=== PATIENT | female | born 1940 | race Caucasian/White ===

== ENCOUNTER 2020-07-01 01:02 | Inpatient (IN) | payer OTHER, SELFPAY ==
[2020-07-01] VITALS (73 sets, daily range): BP systolic 73–109; BP diastolic 46–77; PULSE 57–104; RESP 17–31; TEMP 35.9–36.2; O2SAT 2–99
--- NOTE | 2020-07-01 | DI.US_ITS ---
APPROVED REPORT EXAM: Comprehensive 2D, Doppler, and color-flow Echocardiogram Patient Location: In-Patient Ambulatory Care Coordinator: Megan Serna RDCS (AE) Indications: COPD,CHF,Hypotension Other Information Study Quality: Adequate Conclusion Left Ventricle : The left ventricle is normal size. The left ventricular systolic function is normal. The left ventricular ejection fraction is within the normal range. There is normal left ventricular wall thickness. There is normal LV segmental wall motion. The left ventricular diastolic function is normal. LVEF is 59%. Right Ventricle : Right ventricle is borderline dilated. The right ventricular systolic function is n ormal. The RVSP is 40.5 mmHg. Atria : Left atrium is severely dilated. Right atrium is moderately dilated. Mitral Valve : Moderate mitral annular calcification. Moderate mitral regurgitation. Mitral regurgita tion jet is eccentrically directed. No evidence of mitral valve stenosis. Great Vessels : The aortic root is normal in size. The ascending aorta is severely dilated (4.3cm). A ortic arch is normal in caliber. IVC is normal in size and collapses >50% with inspiration. Please see remainder of study for further details. Wall motion Left Ventricle The left ventricle is normal size. The left ventricular systolic function is normal. The left ventric ular ejection fraction is within the normal range. There is normal left ventricular wall thickness. T here is normal LV segmental wall motion. The left ventricular diastolic function is normal. There is no ventricular septal defect visualized. LVEF is 59%. Right Ventricle Right ventricle is borderline dilated. The right ventricular systolic function is normal. The RVSP is 40.5 mmHg. Atria Left atrium is severely dilated. Right atrium is moderately dilated. The interatrial septum is intact with no evidence for an atrial septal defect. Aortic Valve The Aortic valve is sclerotic. Aortic valve is trileaflet. No hemodynamically significant valvular ao rtic stenosis. Trace to mild aortic regurgitation. Mitral Valve Moderate mitral annular calcification. No evidence of mitral valve stenosis. Moderate mitral regurgit ation. Mitral regurgitation jet is eccentrically directed. Tricuspid Valve The tricuspid valve is normal in structure. There is no tricuspid valve stenosis. Mild tricuspid regu rgitation. Pulmonic Valve The pulmonary valve is normal in structure. There is no pulmonic valvular stenosis. Trace pulmonic re gurgitation. Great Vessels The aortic root is normal in size. The ascending aorta is severely dilated (4.3cm). Aortic arch is no rmal in caliber. IVC is normal in size and collapses >50% with inspiration. Pericardium There is no pericardial effusion. 2D Dimensions IVSD d PLAX 1.02 cm F: 0.6-1.0 LV Vol A2C d MOD 84.0 mL LVPW d PLAX 1.02 cm F: 0.6 - 1.0 LV Vol A4C d MOD 68.8 mL LVID d PLAX 4.63 cm F: 3.8 - 5.2 LA vol/ BSA A2C s A-L 56.7 mL/m2 LVDs 3.05 cm F: 2.2 - 3.5 LA vol/ BSA A4C s A-L 41.1 mL/m2 Ao Root d 3.26 cm F: 2.7 - 3.3 LA Vol/ BSA Biplane s A-L 49.7 mL/m2 RA Area A4C 23.42 cm2 LA Area A4C s MOD 23.87 cm2 RA Vol/ BSA A4C s A-L 41.3 mL/m2 LA Area A2C s MOD 28.88 cm2 Ao Asc Diam d 4.33 cm F: 2.3 - 3.1 LV EF A4C MOD 58.1 % LV EF Teichholz 62.8 % LV EF A2C MOD 59.8 % LVEF (Devlin's) 59.22 % F: 54 - 74 LV EF Biplane MOD 59.2 % LV Volume 59.53 mL F: 46 - 106 SV 45.69 mL LV Volume Index 32.35 mL/m2 F: 29 - 61 SV Index 24.83 mL/m2 LV Vol Biplane MOD 77.1 mL FS 33.85 % M-Mode TAPSE 1.85 cm (M/F) >1.7 LV Diastology MV E' medial 0.087 (>0.07 m/s) MV E Vmax 1.14 (0.4-1.3 m/s) LV E/e MED 13.05 (<14) MV E' lateral 0.136 (>0.1 m/s) LV E/e LAT 8.35 (<14) MV E/E' medial 13.09 MV E/E' lateral 8.37 Aortic Valve LVOT Area 3.59 cm2 AoV Area Vmax 2.40 cm2 LVOT Vmax 1.43 m/s AoV Area/ BSA (Vmax) 1.31 cm2/m2 LVOT Mean Andriy. 1.00 m/s BRANDAN Mean Andriy. 2.60 cm2 LVOT Peak Grad 8.2 mmHg BRANDAN Mean Andriy. Index 1.42 cm2/m2 LVOT Mean Grad 4.6 mmHg AR DT 2277 msec LVOT VTI 0.277 m AR PHT 660 msec LVOT Diam s 2.10 cm AoV Vmax 2.14 m/s Velocity Ratio 0.66 AoV Mean Andriy. 1.38 m/s AoV Peak Grad 18.3 mmHg LVOT SV 99.46 mL AoV Mean Grad 8.9 mmHg AoV VTI 0.344 m AoV Area VTI 2.89 cm2 AoV Area/ BSA (VTI) 1.57 cm/m2 Mitral Valve MV DT 217 (160-240 msec) MR Vmax 4.86 m/s MV PHT 63 msec MR VTI 1.385 m MV Area PHT 3.50 cm2 MR Peak Grad 94.7 mmHg MV VTI 0.231 m MR Mean Grad 76.5 mmHg MV VTI Annulus 0.233 m MR PISA Radius 0.61 cm MV Area VTI 4.34 (4.0-6.0 cm2) MR EROA 0.17 cm2 MR Aliasing Velocity 0.35 m/s MR PISA 2.34 cm2 Pulmonary Valve PV Vmax 1.09 (0.5-1.5 m/s) RVOT Peak Gr. 2.32 mmHg PV Peak Grad 4.7 mmHg RVOT Mean Gr. 1.20 mmHg PV Mean Grad 2.1 mmHg RVOT VTI 0.146 m PV VTI 0.174 m RVOT Vmax 0.76 m/s Tricuspid Valve TR Peak Grad 37.4 mmHg TR Vmax 3.06 m/s RA Pressure 3.00 mmHg RVSP (TR) 40.5 mmHg
--- NOTE | 2020-07-01 01:09 | HPE_ITS ---
Assessment and Plan Assessment and plan (1) Atrial fibrillation: Status: Chronic Assessment and plan: Presented atrial fibrillation with rapid ventricular response. Appears to be been triggered by dehydration. She may have also had her blood pressure medications changed, which makes me wonder if she was previously on a rate control agent. She did respond to relatively low-dose diltiazem at [facility]. But I am going to transition her to metoprolol, as patients with COPD and cardiac issues often do better on metoprolol. Goal rate below 110. I cannot find record of her being on anticoagulation. Her [id number] VASc score is certainly high enough to warrant this based on her age and history of hypertension. Should review her clinic record further and discuss risk and benefits before starting. We will also get TSH given history. (2) Acute on chronic renal failure: Status: Acute Assessment and plan: Again, it appears secondary to dehydration so it is likely prerenal. The patient noted the chlorthalidone, which may have been due to worsened renal failure. I have been told this for now as I gently continue hydration. (3) COPD (chronic obstructive pulmonary disease): Status: Chronic Assessment and plan: For COPD is not appear to be active. It looks like her only controller inhaler is Flovent, which is not first-line as a monotherapy for COPD. I am just giving her her albuterol as needed for now, could consider long-acting muscarinic. (4) GERD (gastroesophageal reflux disease): Status: Chronic Assessment and plan: Patient has history of significant dyspepsia, and was on a boat H2 shweta and prior dose PPI. We will continue PPI. Do not generally recommend cimetidine due to drug drug interactions so we will hold this. (5) DVT prophylaxis: Status: Acute Assessment and plan: Lovenox at prophylactic dose until given full anticoagulation (6) Discharge planning issues: Status: Acute Assessment and plan: Patient is currently stable. Being monitored in the ICU due to rapid ventricular response, but at this point does not need a drip. I confirmed with her today that she wishes to be full code. History of Present Illness History of Present Illness Chief Complaint: Malaise Narrative: 79-year-old female with history of stage III CKD, COPD, and atrial fibrillation who is presenting after more than 2 weeks of progressive general malaise. Patient describes feeling lightheaded, thirsty, off-and-on headache, and blurry vision along with generally feeling under the weather. She is also had loose watery stools during this time that are yellow in color except for looking darker after she took Pepto-Bismol. Over the past several days she is also noted nausea and queasiness in her belly, and states she has had very little to eat or drink due to this the past 2 days. She is not sure what caused this. She does state her primary care physician changed her blood pressure med about a month ago. She states she also was on an extra water pill due to leg swelling earlier in the month, but stopped it. She also had her second Covid vaccine in early May, but she does not think that was the cause of all her symptoms. She is feeling little better after IV fluids and diltiazem as [facility], but is still very thirsty. She received 2 dose of 5 mg IV diltiazem. She was not on a drip. She was transferred to [facility] due to lack of beds at [facility]. Review of Systems Constitutional Constitutional: Denies anorexia, Denies chills, Denies fever(s), Reports headache(s), Reports lethargy, Reports malaise and Denies weight gain Eyes Eyes: Denies change in vision and Denies irritation ENT Ears, Nose, Mouth, and Throat: Reports dizziness, Reports headache(s), Denies nasal congestion, Denies nasal discharge and Denies sore throat Cardiovascular Cardiovascular: Reports palpitations, Denies dyspnea and Denies orthopnea Respiratory Respiratory: Denies cough, Denies excessive phlegm production, Denies dyspnea and Denies wheezing Gastrointestinal Gastrointestinal: Denies abdominal pain, Denies melena, Denies hematochezia, Reports dyspepsia, Denies heartburn, Reports nausea and Denies vomiting Genitourinary Genitourinary: Denies hematuria, Denies dysuria, Denies urinary incontinence and Denies vaginal discharge Musculoskeletal Musculoskeletal: Denies arthralgias and Denies joint swelling Integumentary/Breasts Skin/Breast: Denies rash and Denies skin ulcer Neurologic Neurologic: Denies confusion, Reports dizziness, Reports headache(s), Denies localized weakness and Denies sensory deficit Psychiatric Psychiatric: Denies confusion, Denies mood swings and Denies panic attacks Endocrine Endocrine: Reports palpitations Hematologic/Lymphatic Hematologic/Lymphatic: Denies easy bleeding Allergic/Immunologic Allergic/Immunologic: Denies wheezing PFSH Medical History Atrial fibrillation COPD (chronic obstructive pulmonary disease) GERD (gastroesophageal reflux disease) Hypertension Hypothyroid Family History (Updated 07/01/20 @ 01:14 by Devin Daniel) Sister Breast cancer Mother Breast cancer Brother Colon cancer Social History (Updated 07/01/20 @ 01:16 by Devin Daniel) Smoking/Tobacco Use Status: Former Tobacco Use Smoking risk assessment performed?: Yes Alcohol Intake: current Alcohol Intake frequency: holidays/special occasions only Drug use: Never Additional Social history: 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 Grew up in [place], now [place] Medications and Allergies Allergies Allergy/AdvReac Type Severity Reaction Status Date / Time levothyroxine sodium AdvReac Intermediate dizzy Verified 07/01/20 01:32 [From Synthroid] Exam Narrative Exam Narrative: GEN: Alert and oriented, pleasent and cooperative, gives linear history. No acute distress at rest. HEENT: Head atraumatic. Conjunctiva clear, no icterus. PEERL, EOMI. no rhinorrhea. MMM, OP benign. Neck is supple with no masses or lymphadenopathy, trachea midline LUNGS: CTAB with normal effort CV: Irregularly irregular, pulse in the 90s at rest. With no murmurs, gallops, or rubs. ABD: +BS, soft, NT/ND EXT: no cyanosis, clubbing, or edema MSK: No joint redness or swelling NEURO: CN 2-12 grossly intact. Normal movement of 4 extremities. Normal speech and coordination SKIN: No rashs or open wounds. PSYCH: normal mood and affect Results Imaging Chest x-ray: report reviewed (No acute disease) Additional studies: Atrial fibrillation with rate in the 140s EKG: report reviewed Labs Result diagrams: 07/01/20 05:35 07/01/20 05:35 Labs: See country records, which I reviewed. Significant for BUN and creatinine of 63 and 4.2, up from 20 and 1.3 in July 2019. BNP 1700. Echocardiogram from 2014 reviewed which showed normal ejection fraction.
[2020-07-01] MEDS: Normal Saline 1,000 ML 125 ML IV ×2 (02:06→09:18)
[2020-07-01] MEDS: Metoprolol 25 MG TAB PO (02:06)
[2020-07-01] MEDS: Enoxaparin 40 MG/0.4 ML SYR SC (02:26)
[2020-07-01] MEDS: Normal Saline 500 ML IV ×2 (05:00→08:05)
[2020-07-01 07:33] LABS: BUN 70 mg/dL (7-18); Chloride 111 mmol/L (98-107); Estimated GFR 11.49 (mL/min/1.73m2); Glucose 88 mg/dL (74-106); Potassium 4.5 mmol/L (3.5-5.1); Sodium 141 mmol/L (136-145); TSH (W/Ref FT4) 4.35 uIU/mL (0.36-3.74)
[2020-07-01 07:38] LABS: CREATININE 3.8 mg/dL (0.55-1.02); Magnesium 0.5 mg/dL (1.8-2.4)
[2020-07-01] MEDS: MAGNESIUM SULFATE 4 GM/100 ML BAG IVPB (07:55)
[2020-07-01] MEDS: Esomeprazole 40 MG CAPCR PO (07:56)
[2020-07-01] MEDS: Normal Saline Flush 10 ML SYR (07:59)
[2020-07-01 08:19] LABS: NT-proBNP 1453 pg/mL (<300); Troponin I < 0.05 ng/mL (<0.06)
--- NOTE | 2020-07-01 11:14 | PHA.REVIEW ---
Pharmacy Admission Review - Admission Clinical Review (Last Reviewed 07/01/20 @ 01:13 by Devin Daniel) Discharge planning issues (Acute) DVT prophylaxis (Acute) Acute on chronic renal failure (Acute) levothyroxine sodium [From Synthroid] Adverse Reaction (Intermediate, Verified 07/01/20 01:32) dizzy Height 5 ft 2.99 in Weight 81 kg - Renal Dosing Renal Dosing: BUN 70 mg/dL (7-18) H 07/01/20 06:20 Creatinine 3.8 mg/dL (0.55-1.02) H* 07/01/20 06:20 Medications needing adjustments: Intervened (Crcl ~12.3 mL/min using adjusted body weight. Talked to provider about renally adjusting enoxaparin dosing. Esomeprazole use not recommended with severe impairment (has not beend studied).) - Anticoagulation Anticoagulation: Creatinine 3.8 mg/dL (0.55-1.02) H* 07/01/20 06:20 DVT Prohphylaxis: Reviewed Medications: Enoxaparin Therapeutic Anticoagulation: N/A - Opiate Usage Evaluate Pain Scale/Pains Meds: N/A - Relevant Labs Sodium 141 mmol/L (136-145) 07/01/20 06:20 Potassium 4.5 mmol/L (3.5-5.1) 07/01/20 06:20 Chloride 111 mmol/L (98-107) H 07/01/20 06:20 Magnesium 0.5 mg/dL (1.8-2.4) L* 07/01/20 06:20 Electrolytes, C-Reactive P, ESR: Reviewed (IV mag replacement ordered.) - DM Control DM Control: Glucose 88 mg/dL (74-106) 07/01/20 06:20 Insulin Dosing: N/A - Heart Failure/NH Heart Failure/NH: Troponin I < 0.05 ng/mL (<0.06) 07/01/20 06:20 NT-Pro-B Natriuret Pep 1453 pg/mL (<300) H 07/01/20 06:20 EF%, KALPESH's, B-Blockers, Diuretics: Reviewed - BP Control BP Control: Blood Pressure [Right Arm] 79/62 Blood Pressure [Right Arm] 101/53 Blood Pressure 79/53 Blood Pressure 82/61 Blood Pressure 79/48 Blood Pressure 79/49 Blood Pressure 79/51 Blood Pressure 86/62 Blood Pressure 79/57 If elevated: Reviewed (hypotensive- provider aware/monitoring.) - Qtc Review If Elevated: N/A - IV to PO Switch IV Medications: Reviewed - Home Meds Home Med List reviewed: Reviewed Relevent Home Meds Not ordered & why?: atorvastatin, meclizine, chlorthalidone, calcium carbonate, cholecalciferol, lisinopril - Current meds Current Medication Order Review: Reviewed - Comments Comments/Follow Ups: Watch BP, HR, SCr, Mag and for med changes.
[2020-07-01 11:22] LABS: Troponin I < 0.05 ng/mL (<0.06)
--- NOTE | 2020-07-01 11:37 | PGE_ITS ---
Date of Service Date of service: 07/01/20 Time of Service: 11:37 Assessment and Plan Assessment and plan (1) Atrial fibrillation: Status: Chronic Assessment and plan: Patient presented with atrial fibrillation with rapid ventricular response which responded readily to a couple of boluses of diltiazem. Patient remains hypotensive and therefore she is not going to be able to tolerate oral Lopressor. I have written for as needed Lopressor with parameters for giving or holding the medication. At this time I think her tachycardia would do well with adequate volume replacement. If she needs further rate control I would favor diltiazem over lopressor given her COPD and her BP readings. (2) Acute on chronic renal failure: Status: Acute Assessment and plan: I agree that this is pre-renal azotemia d/t diarrhea and continued use of chlorthalidone. I will have nursing obtain stool studies to r/o gastroenteritis, we will monitor her BMP and urine output. as she is voiding easily I have not had them put in a ribeiro yet. If she has low urine outputs or can not void then I will have nursing place a ribeiro (3) COPD (chronic obstructive pulmonary disease): Status: Chronic Assessment and plan: For COPD is not appear to be active. It looks like her only controller inhaler is Flovent, which is not first-line as a monotherapy for COPD. I am just giving her her albuterol as needed for now, could consider long-acting muscarinic. I agree w/ Dr. Daniel's assessment as above. (4) GERD (gastroesophageal reflux disease): Status: Chronic Assessment and plan: Patient has history of significant dyspepsia, and was on a boat H2 shweta and prior dose PPI. We will continue PPI. Do not generally recommend cimetidine due to drug drug interactions so we will hold this. I agree w/ above assessment. She was on a PPI chronically which probably contributed to her severe hypomagenesmia. I do not know how severe her GERD is but suspect that if she has been taking both an H2 shweta and PPI her GERD must be severe. We will keep her on Nexium which she was taking at home. (5) DVT prophylaxis: Status: Acute Assessment and plan: Lovenox at prophylactic dose until given full anticoagulation. (per my discussion w/ pharmacist, enoxaparin dose has been reduced for her TOBY/CKD) (6) Discharge planning issues: Status: Acute Assessment and plan: Patient is currently stable. Being monitored in the ICU due to rapid ventricular response, but at this point does not need a drip. I confirmed with her today that she wishes to be full code. Subjective Subjective Interval history since last seen: 79-year-old female with a past medical history of COPD, hypertension, stage III chronic kidney disease, GERD, mild aortic stenosis was transferred from [facility] to [facility] after she originally presented to [facility] emergency department with complaints of 2 weeks of nausea, diarrhea, decreased oral intake and dizziness. No associated chest pain but she has had exertional dyspnea over that same period of time. Symptoms got worse yesterday when she presented to the emergency department where she was found to be in rapid atrial fibrillation with a heart rate of 145 and a systolic blood pressure 100 and she was found to be in acute renal failure with a BUN of 63 and a creatinine of 4.20. LFTs and electrolytes are within normal limits. Hemoglobin is 14.2 g white count was minimally elevated 11,800. Her proBNP was elevated 1750 but her troponin high level was less than 0.06 which is normal. EKG was consistent with rapid atrial fibrillation rate 145 bpm with rate dependent ischemic ST depression diffusely. Patient was given a couple of fluid boluses and given 5 mg of diltiazem IV which was then repeated and IV fluids were started at 100 cc/h. Note that the ER indicated questionable history of CHF as the patient had been receiving diuretics including chlorthalidone for leg edema. And the patient had an elevated proBNP. However we have since received her last echocardiogram from [facility] which was performed July 21, 2014 and at that time she had normal left ventricular systolic function with a EF of 65% normal RV systolic function with mild biatrial enlargement and mild aortic stenosis. Mild mitral gravitation. Patient was accepted in transfer from [facility] at [facility] by Dr. Devin Daniel management gave her another 500 mL each because of low blood pressures running in the 70s to 80s systolic. Since I have assumed her care this morning I have given her 2 more boluses of 500 mL of saline each. Her magnesium level was found to be low at 0.5 and she has received a bolus of magnesium sulfate 4 g over 4 hours. TFTs showed mildly elevated TSH of 4.35 with a normal free T4. Repeat troponins this morning have remained negative. I did a [id number] ultrasound of her heart which was incomplete as the debeader came up to do a formal echocardiogram. Grossly her LV function appeared to be normal on the parasternal short axis view however I did not complete the exam since a formal echocardiogram is being done now. Her atrial fibrillation rate has been reasonably controlled in the 90s. Dr. Daniel start her on Lopressor 12.5 mg p.o. every 6 hours but she has not been able to take any of this because of her low blood pressure readings. Patient denies any CP or dyspnea at present and her SPO2 is 97% on RA however her SBP remains low in the high 70's to low 80's. Her lungs are clear. I suspect that she has severe dehydration d/t diuretic use along w/ her decr. oral intake and diarrhea. She will continue to receive aggressive IV fluids while we complete her cardiac workup w/ formal echo. I think that her BNP is probably chronically elevated d/t her COPD. Exam Narrative Exam Narrative: Elderly female lying in bed in no acute distress in spite of her low blood pressure. She is asymptomatic but we have not tried sitting her up or getting her out of bed. Lungs are clear to auscultation Heart is irregularly irregular Abdomen soft and nontender. Objective Last Vital Signs Temp 36.2 C L 07/01/20 07:45 Pulse 70 07/01/20 11:30 Resp 22 07/01/20 11:30 BP 84/49 L 07/01/20 11:30 Pulse Ox 97 07/01/20 11:30 Laboratory Results - last 24 hr 07/01/20 07/01/20 06:20 10:30 Sodium 141 Potassium 4.5 Chloride 111 H Carbon Dioxide 16.0 L Anion Gap 14.0 H BUN 70 H Creatinine 3.8 H* Estimated GFR/1.73 m2 11.49 Glucose 88 Calcium 7.0 L Magnesium 0.5 L* Troponin I < 0.05 < 0.05 NT-Pro-B Natriuret Pep 1453 H TSH 4.35 H Free T4 1.10
[2020-07-01] MEDS: Normal Saline 1,000 ML 250 ML IV (12:26)
--- NOTE | 2020-07-01 12:34 | PDOC.CMIN ---
- If Service Date Differs Date of service: 07/01/20 Time of Service: 12:34 Care Management Initial Assess REASON FOR HOSPITALIZATION:: A-fib, acute renal insufficiency PAST MEDICAL HISTORY/PAST SURGICAL HISTORY:: Atrial fibrillation. COPD (chronic obstructive pulmonary disease). GERD (gastroesophageal reflux disease). Hypertension. Hypothyroid PREVIOUS FUNCTIONAL STATUS/SOCIAL/FAMILY SUPPORTS:: Felipa resides alone in an apartment building that her son owns in [place]. She is and has one son, Durga who resides next door as well as a daughter, Ailyn who resides locally, both are supportive. She is independent at baseline in the community. CURRENT FUNCTIONAL STATUS:: Felipa remains in the ICU, per documentation she is being monitored closely for low BPs, A-fib and renal failure. CM continues to follow. Has patient been provided with info about the portal/API?: Yes Did the patient sign up for the portal?: No CODE STATUS:: Full Code INSURANCE COVERAGE / FINANCIAL ISSUES:: [facility] MCR replacement. CURRENT HOME/COMMUNITY SERVICES/EQUIPMENT:: None, currently. PRIMARY CARE PHYSICIAN:: Jaziel Calderon POTENTIAL DISCHARGE NEEDS:: Follow up with PCP, evaluations for further needs. PATIENT/FAMILY EDUCATION NEEDS:: Review of discharge instructions, discuss Ask Me Three. ANTICIPATED BARRIERS TO DISCHARGE:: None identified at this time. TRANSPORTATION:: Via private vehicle with one of her children. PLAN:: Felipa continues to be closely monitored in the ICU, anticipate she will discharge home with no new services and transport via private vehicle with one of her children.
[2020-07-01 13:20] LABS: Lactate 0.5 mmol/L (0.6-1.4)
[2020-07-01 13:24] LABS: Abs Immature Grans 0.02 10^3/uL (0.0-0.06); Absolute Basophil Count 0.03 10^3/uL (0.0-0.2); Absolute Eosinophil Count 0.08 10^3/uL (0.0-0.7); Absolute Lymphocyte Count 1.18 10^3/uL (1.2-3.4); Absolute Monocyte Count 0.41 10^3/uL (0.1-0.8); Basophils % 0.4; Eosinophils % 1.1; HCT 36.7 % (36.0-46.0); HGB 11.6 g/dL (11.2-15.7); Immature Grans % 0.3; Lymphocytes % 16.3; MCH 28.6 pg (27.0-33.0); MCHC 31.6 % (32.0-36.0); MCV 90.6 fL (80-95); MPV 11.1 fL (8.0-11.0); Monocytes % 5.7; Neutrophils % 76.2; Nucleated RBC 0 %; Platelet Count 259 10^3/uL (130-400); RBC 4.05 10^6/uL (3.93-5.22); RDW 14.9 % (11.7-14.6); RDW-SD 49.2 fL; WBC 7.22 10^3/uL (4.4-10.8)
[2020-07-01 13:30] LABS: Magnesium 2.1 mg/dL (1.8-2.4)
--- NOTE | 2020-07-01 14:08 | CHAPLAIN ---
Felipa was resting in bed when I visited. She told me she was from [place], but [facility] didn't have any beds lasts night, so she was brought here. It was after midnight when she arrived in the ED, and eventually moved to ICU, so she said she hasn't gotten much sleep. She lives in an apartment, where her son owns the building and also lives there. Felipa said her daughter lives in [place] too.
[2020-07-01 14:21] LABS: Bilirubin Negative (Negative); Blood Trace-intact (Negative); Clarity Clear (Clear); Glucose Negative (Negative); Ketones Negative (Negative); Leukocyte Esterase Negative (Negative); Nitrite Negative (Negative); Urobilinogen 0.2 EU/dL (Up TO 0.2); pH 5.5 (5-8)
[2020-07-01 14:36] LABS: WBC 0-2 HPF (0-5)
[2020-07-01 14:37] LABS: Bacteria Rare HPF (Negative); Crystals Few Amorphous HPF (Negative); Epithelial Cells Negative HPF (Negative); Mucus Trace (Negative)
[2020-07-01 14:38] LABS: C & S Indicated? Yes; Casts 10-20 Hyaline LPF (Negative)
[2020-07-01] MEDS: Lactated Ringers 1,000 ML 125 ML IV (16:05)
[2020-07-01 21:52] LABS: Anion Gap 12.5 mmol/L (3-11); BUN 67 mg/dL (7-18); CO2 16.5 mmol/L (21.0-32.0); CREATININE 3.3 mg/dL (0.55-1.02); Calcium 7.2 mg/dL (8.5-10.1); Chloride 112 mmol/L (98-107); Estimated GFR 13.52 (mL/min/1.73m2); Glucose 96 mg/dL (74-106); Potassium 4.3 mmol/L (3.5-5.1); Sodium 141 mmol/L (136-145)
[2020-07-01 22:33] LABS: Lactate 0.7 mmol/L (0.6-1.4)
[2020-07-01 22:36] LABS: Abs Immature Grans 0.03 10^3/uL (0.0-0.06); Absolute Basophil Count 0.04 10^3/uL (0.0-0.2); Absolute Eosinophil Count 0.11 10^3/uL (0.0-0.7); Absolute Lymphocyte Count 1.24 10^3/uL (1.2-3.4); Absolute Monocyte Count 0.52 10^3/uL (0.1-0.8); Absolute Neutrophil Count 5.77 10^3/uL (1.2-6.7); Basophils % 0.5; Eosinophils % 1.4; HGB 10.3 g/dL (11.2-15.7); Immature Grans % 0.4; Lymphocytes % 16.1; MCH 28.9 pg (27.0-33.0); MCHC 32.2 % (32.0-36.0); MCV 89.6 fL (80-95); MPV 11.2 fL (8.0-11.0); Monocytes % 6.7; Neutrophils % 74.9; Nucleated RBC 0 %; Platelet Count 244 10^3/uL (130-400); RBC 3.57 10^6/uL (3.93-5.22); RDW 14.8 % (11.7-14.6); RDW-SD 47.8 fL; WBC 7.71 10^3/uL (4.4-10.8)
[2020-07-01] MEDS: Lactated Ringers 1,000 ML 250 ML IV (22:48)
[2020-07-02] VITALS (35 sets, daily range): BP systolic 84–127; BP diastolic 49–80; PULSE 66–104; RESP 16–28; TEMP 36.3–36.9; O2SAT 95–98
--- NOTE | 2020-07-02 | DI.RAD_ITS ---
EXAM: XR PORTABLE CHEST AP CLINICAL HISTORY: concern for CHF TECHNIQUE: COMPARISON: No exams were available for comparison FINDINGS: The heart is mildly enlarged. Lungs appear grossly clear and well expanded. No pleural effusion meera ntified on this frontal film. IMPRESSION: Cardiomegaly, no evidence of acute process. RADIATION DOSE DELIVERED: Total DLP
[2020-07-02] MEDS: Normal Saline Flush 10 ML SYR ×2 (01:29→20:37)
[2020-07-02] MEDS: Pantoprazole 40 MG VIAL 80 MG IVP (01:30)
[2020-07-02] MEDS: Lactated Ringers 1,000 ML 125 ML IV (03:09)
[2020-07-02 05:43] LABS: BUN 59 mg/dL (7-18); Calcium 7.2 mg/dL (8.5-10.1); Glucose 100 mg/dL (74-106)
[2020-07-02 05:45] LABS: Anion Gap 10.9 mmol/L (3-11); CO2 16.1 mmol/L (21.0-32.0); CREATININE 2.5 mg/dL (0.55-1.02); Chloride 113 mmol/L (98-107); Estimated GFR 18.63 (mL/min/1.73m2); Potassium 4.7 mmol/L (3.5-5.1); Sodium 140 mmol/L (136-145)
[2020-07-02 06:54] LABS: Abs Immature Grans 0.03 10^3/uL (0.0-0.06); Absolute Basophil Count 0.03 10^3/uL (0.0-0.2); Absolute Eosinophil Count 0.16 10^3/uL (0.0-0.7); Absolute Lymphocyte Count 1.45 10^3/uL (1.2-3.4); Absolute Monocyte Count 0.53 10^3/uL (0.1-0.8); Absolute Neutrophil Count 4.22 10^3/uL (1.2-6.7); Basophils % 0.5; Eosinophils % 2.5; HCT 31.2 % (36.0-46.0); Immature Grans % 0.5; Lymphocytes % 22.6; MCH 28.7 pg (27.0-33.0); MCHC 32.1 % (32.0-36.0); MCV 89.4 fL (80-95); MPV 11.2 fL (8.0-11.0); Monocytes % 8.3; Neutrophils % 65.6; Nucleated RBC 0 %; Platelet Count 228 10^3/uL (130-400); RBC 3.49 10^6/uL (3.93-5.22); RDW-SD 48.1 fL; WBC 6.42 10^3/uL (4.4-10.8)
[2020-07-02 07:14] LABS: ALT 9 U/L (14-59); AST 8 U/L (15-37); Albumin 2.6 g/dL (3.4-5.0); Alkaline Phosphatase 54 U/L (46-116); Anion Gap 10.3 mmol/L (3-11); BUN 48 mg/dL (7-18); Bilirubin, Total 0.4 mg/dL (0.2-1.0); CO2 17.7 mmol/L (21.0-32.0); Calcium 7.4 mg/dL (8.5-10.1); Chloride 112 mmol/L (98-107); Glucose 91 mg/dL (74-106); Magnesium 1.3 mg/dL (1.8-2.4); Potassium 4.4 mmol/L (3.5-5.1); Sodium 140 mmol/L (136-145); Total Protein 5.6 g/dL (6.4-8.2)
[2020-07-02 07:30] LABS: Procalcitonin 0.1 ng/mL
[2020-07-02] MEDS: dilTIAZem 30 MG TAB PO ×3 (07:54→20:30)
[2020-07-02] MEDS: MAGNESIUM SULFATE 4 GM/100 ML BAG IVPB (07:57)
--- NOTE | 2020-07-02 08:57 | PGE_ITS ---
Date of Service Date of service: 07/02/20 Time of Service: 12:25 Assessment and Plan Assessment and plan (1) Atrial fibrillation: Status: Chronic Assessment and plan: Rates have been controlled since arrival to [facility]. BPs are borderline but improving since correction of volume status. Continue current therapy (cardizem 30 mg PO TID). Not on anticoagulation as outpatient - not starting this here - can follow up with PCP. (2) Hypotension due to hypovolemia: Status: Resolved Assessment and plan: Manual SBP 110 at this time. Monitor off of IVF. (3) Acute on chronic renal failure: Status: Acute Assessment and plan: pre-renal azotemia due to dehydration in setting of diarrhea and continued use of chlorthalidone. Improved. D/c ribeiro catheter per patient request. D/c IVF. Continue to monitor Cr, I/O's, daily weights. Continue to hold lisinopril and chlorthalidone. (4) Allergic rhinitis: Status: Acute Assessment and plan: Start fluticasone nasal spray. (5) Nausea vomiting and diarrhea: Status: Resolved Assessment and plan: Suspect gastroenteritis - bacterial or viral. Importantly, the patient has now had 2 negative COVID-19 tests (one at [facility], one here this morning). Trial clear liquids, advance as tolerated. Change PPi to PO. (6) Acute anemia: Status: Acute Assessment and plan: Most likely dilutional. However, will check anemia studies/hemoccult. Abstain from chemical DVT ppx. (7) COPD (chronic obstructive pulmonary disease): Status: Chronic Assessment and plan: I agree that this is not clearly acutely exacerbated. Wheezing I heard today is clearly coming from upper airway. The patient states that at home her prescription for albuterol had and she needs a new one on discharge. (8) GERD (gastroesophageal reflux disease): Status: Chronic Assessment and plan: Switch PPI to PO. (9) DVT prophylaxis: Status: Acute Assessment and plan: Hold chemical DVT ppx due to H/H which are trending down (10) Discharge planning issues: Status: Acute Assessment and plan: Medsurg status. Possible discharge home tomorrow vs in 48 hrs. Subjective Subjective Interval history since last seen: Ms Machado states she is feeling better today. She reports sinuses which she gets every spring and a cough productive of white sputum, which is normal for her. She was retested for COVID-19 and was negative. She denies dizziness even when she gets up, though nursing informs me she has not been up. Denies chest pain, shortness of breath (I always breathe like this), nausea. States ribeiro catheter hurts and requests that it be removed. In Afib, rates are controlled. 90s this am. 104/64 this am. Repeat SBP now is the 90s - nurse is checking manual BP. Overnight 80s -90s/50-60s, got bolus of LR (1000 cc). Nursing expressed concerns re wheezing andcough this am. Per Patient, has had this since her ride in the ambulance. Medsurg status. Exam Narrative Exam Narrative: General: Very pleasant elderly female, in good spirits, mildly tachypneic (20s) HEENT: EOMI, MMM Heart: irregularly irregular rhythm Lungs: wheezing on expiration best heard in the neck; no wheezing in the lungs. Abdomen: soft, nontender, nondistended Extremities: no edema BLEs. Objective Last Vital Signs Temp 36.9 C 07/02/20 00:20 Pulse 84 07/02/20 06:30 Resp 20 07/02/20 06:30 BP 100/55 L 07/02/20 06:30 Pulse Ox 97 07/02/20 06:30 Laboratory Results - last 24 hr 07/01/20 07/01/20 07/01/20 10:30 10:30 13:15 WBC RBC Hgb Hct MCV MCH MCHC RDW Plt Count MPV Immature Gran % Neutrophils % Lymphocytes % Monocytes % Eosinophils % Basophils % Nucleated RBC % Absolute Neutrophils Absolute Lymphocytes Absolute Monocytes Absolute Eosinophils Absolute Basophils VBG Lactate Sodium 141 Potassium 4.3 Chloride 112 H Carbon Dioxide 16.5 L Anion Gap 12.5 H BUN 67 H Creatinine 3.3 H Estimated GFR/1.73 m2 13.52 Glucose 96 Calcium 7.2 L Magnesium 2.1 Total Bilirubin AST ALT Alkaline Phosphatase Troponin I < 0.05 Total Protein Albumin Procalcitonin Urine Color Urine Clarity Urine pH Ur Specific Coyle Urine Protein Urine Ketones Urine Blood Urine Nitrite Urine Bilirubin Urine Urobilinogen Ur Leukocyte Esterase Urine RBC Urine WBC Ur Epithelial Cells Urine Crystals Urine Bacteria Urine Casts Urine Mucus Ur Culture Indicated? Urine Glucose Patient ABO/Rh Antibody Screen 07/01/20 07/01/20 07/01/20 13:15 13:15 14:00 WBC 7.22 RBC 4.05 Hgb 11.6 Hct 36.7 MCV 90.6 MCH 28.6 MCHC 31.6 L RDW 14.9 H Plt Count 259 MPV 11.1 H Immature Gran % 0.3 Neutrophils % 76.2 Lymphocytes % 16.3 Monocytes % 5.7 Eosinophils % 1.1 Basophils % 0.4 Nucleated RBC % 0 Absolute Neutrophils 5.50 Absolute Lymphocytes 1.18 L Absolute Monocytes 0.41 Absolute Eosinophils 0.08 Absolute Basophils 0.03 VBG Lactate 0.5 L Sodium Potassium Chloride Carbon Dioxide Anion Gap BUN Creatinine Estimated GFR/1.73 m2 Glucose Calcium Magnesium Total Bilirubin AST ALT Alkaline Phosphatase Troponin I Total Protein Albumin Procalcitonin Urine Color Yellow Urine Clarity Clear Urine pH 5.5 Ur Specific Coyle 1.020 Urine Protein 30 H Urine Ketones Negative Urine Blood Trace-intact H Urine Nitrite Negative Urine Bilirubin Negative Urine Urobilinogen 0.2 Ur Leukocyte Esterase Negative Urine RBC 5-10 H Urine WBC 0-2 Ur Epithelial Cells Negative Urine Crystals Few amorphous Urine Bacteria Rare Urine Casts 10-20 hyaline Urine Mucus Trace Ur Culture Indicated? Yes Urine Glucose Negative Patient ABO/Rh Antibody Screen 07/01/20 07/01/20 07/01/20 22:12 22:12 22:12 WBC 7.71 RBC 3.57 L Hgb 10.3 L Hct 32.0 L MCV 89.6 MCH 28.9 MCHC 32.2 RDW 14.8 H Plt Count 244 MPV 11.2 H Immature Gran % 0.4 Neutrophils % 74.9 Lymphocytes % 16.1 Monocytes % 6.7 Eosinophils % 1.4 Basophils % 0.5 Nucleated RBC % 0 Absolute Neutrophils 5.77 Absolute Lymphocytes 1.24 Absolute Monocytes 0.52 Absolute Eosinophils 0.11 Absolute Basophils 0.04 VBG Lactate 0.7 Sodium 140 Potassium 4.7 Chloride 113 H Carbon Dioxide 16.1 L Anion Gap 10.9 BUN 59 H Creatinine 2.5 H D Estimated GFR/1.73 m2 18.63 Glucose 100 Calcium 7.2 L Magnesium Total Bilirubin AST ALT Alkaline Phosphatase Troponin I Total Protein Albumin Procalcitonin Urine Color Urine Clarity Urine pH Ur Specific Coyle Urine Protein Urine Ketones Urine Blood Urine Nitrite Urine Bilirubin Urine Urobilinogen Ur Leukocyte Esterase Urine RBC Urine WBC Ur Epithelial Cells Urine Crystals Urine Bacteria Urine Casts Urine Mucus Ur Culture Indicated? Urine Glucose Patient ABO/Rh Antibody Screen 07/02/20 07/02/20 07/02/20 02:46 06:15 06:15 WBC 6.42 RBC 3.49 L Hgb 10.0 L Hct 31.2 L MCV 89.4 MCH 28.7 MCHC 32.1 RDW 15.0 H Plt Count 228 MPV 11.2 H Immature Gran % 0.5 Neutrophils % 65.6 Lymphocytes % 22.6 Monocytes % 8.3 Eosinophils % 2.5 Basophils % 0.5 Nucleated RBC % 0 Absolute Neutrophils 4.22 Absolute Lymphocytes 1.45 Absolute Monocytes 0.53 Absolute Eosinophils 0.16 Absolute Basophils 0.03 VBG Lactate Sodium 140 Potassium 4.4 Chloride 112 H Carbon Dioxide 17.7 L Anion Gap 10.3 BUN 48 H D Creatinine 2.0 H Estimated GFR/1.73 m2 24.10 Glucose 91 Calcium 7.4 L Magnesium 1.3 L Total Bilirubin 0.4 AST 8 L ALT 9 L Alkaline Phosphatase 54 Troponin I Total Protein 5.6 L Albumin 2.6 L Procalcitonin Urine Color Urine Clarity Urine pH Ur Specific Coyle Urine Protein Urine Ketones Urine Blood Urine Nitrite Urine Bilirubin Urine Urobilinogen Ur Leukocyte Esterase Urine RBC Urine WBC Ur Epithelial Cells Urine Crystals Urine Bacteria Urine Casts Urine Mucus Ur Culture Indicated? Urine Glucose Patient ABO/Rh A Negative Antibody Screen Negative 07/02/20 07/02/20 06:15 22:12 WBC RBC Hgb Hct MCV MCH MCHC RDW Plt Count MPV Immature Gran % Neutrophils % Lymphocytes % Monocytes % Eosinophils % Basophils % Nucleated RBC % Absolute Neutrophils Absolute Lymphocytes Absolute Monocytes Absolute Eosinophils Absolute Basophils VBG Lactate Sodium Cancelled Potassium Cancelled Chloride Cancelled Carbon Dioxide Cancelled Anion Gap Cancelled BUN Cancelled Creatinine Cancelled Estimated GFR/1.73 m2 Cancelled Glucose Cancelled Calcium Cancelled Magnesium Total Bilirubin AST ALT Alkaline Phosphatase Troponin I Total Protein Albumin Procalcitonin 0.1 Urine Color Urine Clarity Urine pH Ur Specific Coyle Urine Protein Urine Ketones Urine Blood Urine Nitrite Urine Bilirubin Urine Urobilinogen Ur Leukocyte Esterase Urine RBC Urine WBC Ur Epithelial Cells Urine Crystals Urine Bacteria Urine Casts Urine Mucus Ur Culture Indicated? Urine Glucose Patient ABO/Rh Antibody Screen Objective Narrative Objective Narrative: CXR: No acute process
[2020-07-02 09:51] LABS: Source Nasal/Nares
--- NOTE | 2020-07-02 10:27 | CMPROGNOTE_ITS ---
- If Service Date Differs Date of service: 07/02/20 Time of Service: 10:27 Care Management Progress Note S/O: No change in plan. Per provider note, Felipa reports feeling better today. The ribeiro catheter and IV fluids are discontinued. Nursing report concerns of a dry cough and wheezing. A chest x-ray is ordered but does not reveal an acute process. If patient continues to improve, she may discharge home on Saturday or Saturday. A: Felipa is a 79 year old female admitted to [facility] on 07/01/2020 for atrial fibrillation and acute renal insufficiency. P: Plan remains for Felipa to return home with no new services when medically cleared. 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 She will be driven home via private vehicle with family when ready. CM will continue to follow.
--- NOTE | 2020-07-02 10:31 | DI.VRAD_ITS ---
PROCEDURE INFORMATION: Exam: XR Chest Exam date and time: 07/02/2020 8:25 AM Age: 79 years old Clinical indication: Shortness of breath TECHNIQUE: Imaging protocol: XR of the chest Views: 1 view. COMPARISON: No relevant prior studies available. FINDINGS: Tubes, catheters and devices: Overlying EKG wires Lungs: Unremarkable. No consolidation. Pleural spaces: Unremarkable. No pleural effusion. No pneumothorax. Heart/Mediastinum: Mild cardiomegaly Vasculature: Tortuous aorta. Bones/joints: Unremarkable. Other findings: Patient is rotated to the right. IMPRESSION: No acute process Dictated and Authenticated by: Nely Eden MD. Ordering:STEPH Davison MD
[2020-07-02 10:32] LABS: COVID-19 PCR Negative (Negative)
[2020-07-02] MEDS: Fluticasone NASAL SPRAY 16 GM BTL NS (12:45)
[2020-07-02 13:06] LABS: NT-proBNP 5834 pg/mL (<300)
--- NOTE | 2020-07-02 16:37 | NUR.NOTE ---
Transferred pt from ICU room [address] [facility] room 207. Nursing Note:
[2020-07-02] MEDS: Esomeprazole 40 MG CAPCR PO (20:30)
[2020-07-03 06:47] LABS: Abs Immature Grans 0.02 10^3/uL (0.0-0.06); Absolute Basophil Count 0.04 10^3/uL (0.0-0.2); Absolute Eosinophil Count 0.27 10^3/uL (0.0-0.7); Absolute Lymphocyte Count 1.02 10^3/uL (1.2-3.4); Absolute Monocyte Count 0.47 10^3/uL (0.1-0.8); Absolute Neutrophil Count 4.44 10^3/uL (1.2-6.7); Basophils % 0.6; Eosinophils % 4.3; HCT 30.8 % (36.0-46.0); HGB 10.1 g/dL (11.2-15.7); Immature Grans % 0.3; Lymphocytes % 16.3; MCH 28.9 pg (27.0-33.0); MCHC 32.8 % (32.0-36.0); MCV 88.3 fL (80-95); MPV 11.3 fL (8.0-11.0); Monocytes % 7.5; Nucleated RBC 0 %; Platelet Count 230 10^3/uL (130-400); RBC 3.49 10^6/uL (3.93-5.22); RDW 15.2 % (11.7-14.6); RDW-SD 48.7 fL; WBC 6.26 10^3/uL (4.4-10.8)
[2020-07-03 07:00] VITALS: PULSE 91
[2020-07-03 07:01] LABS: Iron 72 ug/dL (50-170); Total Iron Binding Capacity 210 ug/dL (250-450); Transferrin Sat 34 % (15-50)
[2020-07-03 07:17] LABS: Anion Gap 11.7 mmol/L (3-11); BUN 34 mg/dL (7-18); CO2 19.3 mmol/L (21.0-32.0); CREATININE 1.6 mg/dL (0.55-1.02); Chloride 111 mmol/L (98-107); Estimated GFR 31.17 (mL/min/1.73m2); Ferritin 122 ng/mL (8-252); Glucose 93 mg/dL (74-106); Potassium 4.3 mmol/L (3.5-5.1); Sodium 142 mmol/L (136-145)
[2020-07-03 07:26] LABS: Folate 2.9 ng/mL (8.6-20.0); Vitamin B12 178 pg/mL (193-986)
[2020-07-03 07:33] VITALS: BP 114/76; PULSE 100; RESP 20; TEMP 36.4; O2SAT 96
[2020-07-03] MEDS: dilTIAZem 30 MG TAB PO ×2 (08:14→13:46)
[2020-07-03] MEDS: Esomeprazole 40 MG CAPCR PO (08:14)
[2020-07-03] MEDS: Fluticasone NASAL SPRAY 16 GM BTL NS (08:15)
[2020-07-03] MEDS: Cyanocobalamin 500 MCG TAB 1000 MCG PO (09:12)
[2020-07-03] MEDS: Folic Acid 1 MG TAB PO (09:12)
[2020-07-03] MEDS: Cyanocobalamin 1000 MCG/ML VIAL IM/SC (09:12)
[2020-07-03 11:07] VITALS: BP 120/78; BP 123/78; BP 123/82; PULSE 102; PULSE 90; PULSE 94
--- NOTE | 2020-07-03 12:12 | DSE_ITS ---
Date of service: 07/03/20 Time of Service: 12:13 DS: Diagnosis Discharge Diagnosis (1) Hypotension due to hypovolemia: Status: Resolved (2) Acute on chronic renal failure: Status: Acute (3) Atrial fibrillation: Status: Chronic (4) Gastroenteritis: Status: Resolved (5) Acute anemia: Status: Acute (6) Folate deficiency: Status: Acute (7) B12 deficiency anemia: Status: Acute (8) Allergic rhinitis: Status: Acute (9) Pulmonary hypertension: Status: Acute Asessment and Plan: RVSP 40.5 mm Hg (10) COPD (chronic obstructive pulmonary disease): Status: Chronic (11) GERD (gastroesophageal reflux disease): Status: Chronic (12) Hypomagnesemia: Status: Resolved (13) COVID-19 ruled out by laboratory testing: Status: Ruled-out Discharge Plan Disposition Patient Disposition: HOME Condition: Improving Discharge Details Reason For Visit: ATRIAL FIBRILLATION, ACUTE RENAL INSUFFIENCY Admit Date/Time: 07/01/20 01:02 Admit Provider: Devin Daniel Attending Provider: Devin Daniel Primary Care Provider: Jaziel Calderon Hospital Course Hospital Course: Ms Machado is a 79 year old female with PMHx of Afib, not on anticoagulation, HTN, CKD III, non-oxygen dependent COPD, who was admitted to [facility] hospitalist service on 07/01/20 for hypotension in setting of dehydration and rapid afib being initiated on new medical therapy with cardizem at [facility] where she had originally presented. The patient was dehydrated due to nausea/vomiting/diarrhea with negative abdominal imaging, suggesting an infectious etiology to her gastroenteritis which was self-limited and had resolved without intervention. Her Cr was 3.8 upon arrival to our facility, reflecting prerenal azotemia in light of dehydration as well. COVID-19 was ruled out by two negative PCRs (one at [facility], and one at our facility). The patient did require IV hydration x 2 days to restore normotension. Her heart rate remained controlled on diltiazem 30 mg PO TID. She is able to tolerate PO. There is evidence of pulmonary hypertension on her echo (RVSP 40.5 mmHg). Given this as well as Afib, sleep apnea needs to be ruled out as outpatient. We will defer this to PCP. She should have repeat blood work 1 week after discharge. Her home lisinopril is being discontinued. She can start HCTZ (in place of chlorthalidone, which would be hard to split) at the dose of 12.5 mg PO daily. She should follow up with her PCP in 1-2 weeks. She may benefit from a 14 day monitor to ensure that the patient's heart rates remain controlled as outpatient. Care for patient as well as completion of her discharge summary took 45 minutes on day of discharge. Home Meds and New Rx's Prescriptions: New albuterol sulfate [Ventolin HFA] 90 mcg/actuation Hfa Aerosol Inhaler 2 puff inhalation Q4H PRN PRN (Reason: shortness of breath or wheezing) Qty: 18 RF: 0 diltiazem HCl [Cardizem] 30 mg Tablet 30 mg PO TID Qty: 90 RF: 0 fluticasone propionate 50 mcg/actuation [place],Suspension 2 spray NS DAILY Qty: 15.8 RF: 0 folic acid 1 mg Tablet 1 mg PO DAILY Qty: 30 RF: 0 magnesium oxide 500 mg capsule 500 mg PO DAILY Qty: 30 RF: 0 mecobalamin (vitamin B12) 1,000 mcg tablet,disintegrating 1,000 mcg sublingual DAILY Qty: 30 RF: 0 hydrochlorothiazide 12.5 mg tablet 12.5 mg PO DAILY Qty: 30 RF: 0 Continued atorvastatin 40 mg Tablet 40 mg PO QHS RF: 0 calcium carbonate [Calcium 600] 600 mg calcium (1,500 mg) Tablet 600 mg PO DAILY RF: 0 meclizine 25 mg Tablet 25 mg PO TID PRNRF: 0 esomeprazole magnesium 40 mg Capsule,Delayed Release(Dr/Ec) 40 mg PO DAILY RF: 0 cholecalciferol (vitamin D3) [Vitamin D3] 25 mcg (1,000 unit) Tablet 25 mcg PO DAILY RF: 0 acetaminophen 325 mg Capsule 650 mg PO PRN PRNRF: 0 Discontinued lisinopril 20 mg Tablet 20 mg PO DAILY RF: 0 chlorthalidone 25 mg Tablet 25 mg PO DAILY RF: 0 Discharge Instructions Instructions: Diltiazem (By mouth), Hydrochlorothiazide (By mouth), Folic Acid (By mouth), A-fib (Atrial Fibrillation) (DC), Dehydration (DC), Vitamin B12 Deficiency (ED) Additional Instructions: Return to the hospital with any fever, bleeding, chest pain or shortness of breath. Activity:: Activity as Tolerated Equipment/Supplies:: No Equipment Needed Diet:: As Tolerated Discharge Orders Discharge Orders: Discharge Order (Routine); Ordered 07/03/20 Ordered By: Laney Henriquez Other Ambulatory Orders: Basic Metabolic Panel (Routine) Timeframe: 20200711 Location: Determined by Patient Ordered By: Laney Henriquez Complete Blood Count w/Diff (Routine) Timeframe: 20200711 Location: Determined by Patient Ordered By: Laney Henriquez Magnesium (Routine) Timeframe: 20200711 Location: Determined by Patient Ordered By: Laney Henriquez DS: Summary Time Spent with Patient providing and/or coordinating discharge services: Greater than 30 minutes Status at Discharge Functional status at discharge: independent ambulation Overall status at discharge: patient is progressing back to baseline Mental Status: mental status grossly normal Speech and Movement: speech and movement normal Mood: congruent mood Affect: normal affect Exam Narrative Exam Narrative: General: Very pleasant elderly female, in good spirits, no evidence of tachypnea today HEENT: EOMI, MMM Heart: irregularly irregular rhythm Lungs: no wheezing on expiration B, but breath sounds are dull Abdomen: soft, nontender, nondistended Extremities: no edema BLEs. Psych Mental Status: mental status grossly normal Speech and Movement: speech and movement normal Mood: congruent mood Affect: normal affect DS: Data Vitals/I&O Vitals and I&O: Vital Signs Temperature 36.4 C L 07/03/20 07:33 Temperature Source Tympanic 07/03/20 07:33 Pulse 94 H 07/03/20 11:07 Pulse Rhythm Irregular 07/03/20 05:17 Pulse 78 07/02/20 11:30 Respiratory Rate 20 07/03/20 07:33 Respiratory Effort 07/03/20 05:17 Respiratory Depth Normal 07/03/20 05:17 Respiratory Pattern Normal 07/03/20 05:17 Blood Pressure 123/82 07/03/20 11:07 Blood Pressure Mean 66 07/02/20 11:30 Blood Pressure Position Sitting 07/01/20 16:00 Pulse Oximetry 96 07/03/20 07:33 Oxygen Delivery Method Room Air 07/03/20 07:33 Oxygen Flow Rate 0 07/03/20 07:33 Pain Level 0 07/03/20 07:33 Comment 07/01/20 20:05 Intake & Output 07/02/20 07/03/20 07/03/20 23:59 11:59 23:59 Intake Total 410 / 2078.75 Balance 410 / 1528.75 Weight 90 kg Intake: IV 1677.75 Oral 400 / 400 Other: Urine Color Yellow Urine Appearance Clear Clear Urine Odor None Comment Patient voids independently in the bathroom. Patient reports voiding multiple times throughout the day. unable to assess volume d/t toilet paper in commode Voiding Methods Toilet Bedside Commode Data Completed and Pending Completed studies during hospitalization [Text1]: Echo; Left Ventricle : The left ventricle is normal size. The left ventricular systolic function is normal. The left ventricular ejection fraction is within the normal range. There is normal left ventricular wall thickness. There is normal LV segmental wall motion. The left ventricular diastolic function is normal. LVEF is 59%. Right Ventricle : Right ventricle is borderline dilated. The right ventricular systolic function is normal. The RVSP is 40.5 mmHg. Atria : Left atrium is severely dilated. Right atrium is moderately dilated. Mitral Valve : Moderate mitral annular calcification. Moderate mitral regurgitation. Mitral regurgitation jet is eccentrically directed. No evidence of mitral valve stenosis. Great Vessels : The aortic root is normal in size. The ascending aorta is severely dilated (4.3cm). Aortic arch is normal in caliber. IVC is normal in size and collapses >50% with inspiration. Please see remainder of study for further details. CXR: Cardiomegaly, no evidence of acute process. Labs on day of discharge: Labs from last 24 hours 07/03/20 07/03/20 07/03/20 10:50 10:50 06:05 WBC RBC Hgb Hct MCV MCH MCHC RDW Plt Count MPV Immature Gran % Neutrophils % Lymphocytes % Monocytes % Eosinophils % Basophils % Nucleated RBC % Absolute Neutrophils Absolute Lymphocytes Absolute Monocytes Absolute Eosinophils Absolute Basophils Sodium Potassium Chloride Carbon Dioxide Anion Gap BUN Creatinine Estimated GFR/1.73 m2 Glucose Calcium Magnesium Iron TIBC Transferrin % Sat Ferritin Total Bilirubin AST ALT Alkaline Phosphatase NT-Pro-B Natriuret Pep Total Protein Albumin Vitamin B12 178 L Folate 2.9 L Stool Rotavirus Antigen Stool Campylobacter PCR Pending Stl C.difficile Tox PCR Pending Stool Salmonella PCR Pending Stool Shigella PCR Pending Shiga Toxin (PCR) Pending 07/03/20 07/03/20 07/03/20 06:05 06:05 06:05 WBC 6.26 RBC 3.49 L Hgb 10.1 L Hct 30.8 L MCV 88.3 MCH 28.9 MCHC 32.8 RDW 15.2 H Plt Count 230 MPV 11.3 H Immature Gran % 0.3 Neutrophils % 71.0 Lymphocytes % 16.3 Monocytes % 7.5 Eosinophils % 4.3 Basophils % 0.6 Nucleated RBC % 0 Absolute Neutrophils 4.44 Absolute Lymphocytes 1.02 L Absolute Monocytes 0.47 Absolute Eosinophils 0.27 Absolute Basophils 0.04 Sodium 142 Potassium 4.3 Chloride 111 H Carbon Dioxide 19.3 L Anion Gap 11.7 H BUN 34 H D Creatinine 1.6 H Estimated GFR/1.73 m2 31.17 Glucose 93 Calcium 8.0 L Magnesium 2.0 Iron 72 TIBC 210 L Transferrin % Sat 34 Ferritin 122 Total Bilirubin AST ALT Alkaline Phosphatase NT-Pro-B Natriuret Pep Total Protein Albumin Vitamin B12 Folate Stool Rotavirus Antigen Stool Campylobacter PCR Stl C.difficile Tox PCR Stool Salmonella PCR Stool Shigella PCR Shiga Toxin (PCR) 07/02/20 07/01/20 06:15 Unknown WBC RBC Hgb Hct MCV MCH MCHC RDW Plt Count MPV Immature Gran % Neutrophils % Lymphocytes % Monocytes % Eosinophils % Basophils % Nucleated RBC % Absolute Neutrophils Absolute Lymphocytes Absolute Monocytes Absolute Eosinophils Absolute Basophils Sodium 140 Potassium 4.4 Chloride 112 H Carbon Dioxide 17.7 L Anion Gap 10.3 BUN 48 H D Creatinine 2.0 H Estimated GFR/1.73 m2 24.10 Glucose 91 Calcium 7.4 L Magnesium 1.3 L Iron TIBC Transferrin % Sat Ferritin Total Bilirubin 0.4 AST 8 L ALT 9 L Alkaline Phosphatase 54 NT-Pro-B Natriuret Pep 5834 H Total Protein 5.6 L Albumin 2.6 L Vitamin B12 Folate Stool Rotavirus Antigen Cancelled Stool Campylobacter PCR Stl C.difficile Tox PCR Stool Salmonella PCR Stool Shigella PCR Shiga Toxin (PCR) Preliminary micro results at discharge 07/01/20 22:20 Blood Culture - Preliminary Blood NO GROWTH 24 HOURS 07/01/20 22:12 Blood Culture - Preliminary Blood NO GROWTH 24 HOURS [facility] Medical History Atrial fibrillation COPD (chronic obstructive pulmonary disease) GERD (gastroesophageal reflux disease) Hypertension Hypothyroid Family History (Updated 07/01/20 @ 01:14 by Devin Daniel) Sister Breast cancer Mother Breast cancer Brother Colon cancer Social History (Updated 07/01/20 @ 01:16 by Devin Daniel) Smoking/Tobacco Use Status: Former Tobacco Use Smoking risk assessment performed?: Yes Alcohol Intake: current Alcohol Intake frequency: holidays/special occasions only Drug use: Never Additional Social history: 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 Grew up in [facility], now [place]
[2020-07-03 12:15] LABS: C Diff PCR Negative (Negative)
--- NOTE | 2020-07-03 14:01 | PDOC.CMDIS ---
- If Service Date Differs Date of service: 07/03/20 Time of Service: 14:01 LACE Index Scoring Tool - Questions: Length of Stay (in days): 2 Acuity (Admit via E.D.?): No Comorbidities: Chronic Pulmonary Disease E.D. Visits: 0 - Answers: Total Score: 4 Risk of Readmission: Low Risk Care Management Discharge Reason for Hospitalization: A-fib, acute renal insufficiency Discharge Plan: Felipa will discharge home with no new services and transport via private vehicle with one of her children. She will follow up with her PCP and discharge plan of care. Patient/Family Education Needs: Review of discharge instructions, discuss Ask Me Three
--- NOTE | 2020-07-04 08:23 | PT.INNT ---
Date of service: 07/04/20 Time of Service: 08:23 PT Notes Visit Reasons: ATRIAL FIBRILLATION, ACUTE RENAL INSUFFIENCY Felipa discharged from the hospital on 07/03/2020. No skilled services provided for this admission. Thank you for the opportunity to participate in the care of this patient. Kiara Harris PT, DPT, CLT [facility] [place], [place]
[2020-07-04 13:53] LABS: Campylobacter PCR Negative (Negative); Salmonella PCR Negative (Negative); Shiga Toxin PCR Negative (Negative); Shigella/Enteroinvasive Ecoli Negative (Negative)
== END 2020-07-03 15:04 | disposition home or self-care (01) | DRG 315 ==
LOC: ICU 09:03 → MS 07-02 16:22
PROVIDERS: Internal Medicine; Admitting Provider Family Medicine; PCP Family Medicine; Visit Provider Family Medicine
DX: I95.89 Other hypotension (principal); N17.9 Acute kidney failure, unspecified; E86.0 Dehydration; J44.9 Chronic obstructive pulmonary disease, unspecified; K21.9 Gastro-esophageal reflux disease without esophagitis; N18.30 Chronic kidney disease, stage 3 unspecified; I12.9 Hypertensive chronic kidney disease with stage 1 through stage 4 chronic kidney disease, or unspecified chronic kidney disease; E03.9 Hypothyroidism, unspecified; Z20.822 Contact with and (suspected) exposure to COVID-19; K52.9 Noninfective gastroenteritis and colitis, unspecified; E53.8 Deficiency of other specified B group vitamins; D51.9 Vitamin B12 deficiency anemia, unspecified; J30.9 Allergic rhinitis, unspecified; I27.20 Pulmonary hypertension, unspecified; E83.42 Hypomagnesemia
CPT/HCPCS: 36415; 80048; 80053; 84145; 86850; 86900; 86901; 87040; 87493; 87505; 87635; 90686; 93306; 99222; 99233; 99239; 99356; J1650; 71045; 81003; 81015; 82270; 82272; 82607; 82728; 82746; 83540; 83550; 83605; 83630; 83735; 83880; 84439; 84443; 84484; 85025; 87086; J3420; J3475

== ENCOUNTER → 2022-01-23 18:21 | Outpatient (CLI) | payer OTHER, MEDICAID, SELFPAY ==
--- NOTE | 2022-01-23 14:30 | DI.RAD_ITS ---
Exam(s) XR ANKLE RT COMPLETE EXAM: XR ANKLE RT COMPLETE CLINICAL HISTORY: PAIN IN ANKLE JOINTS OF FOOT-[id number], (ANTERIOR LATERAL). TECHNIQUE: 2D digital imaging was performed. COMPARISON: No exams were available for comparison FINDINGS: 3 views There is a healed fracture site at the junction of the mid and distal thirds right tibia. There is soft tissue swelling on both sides the ankle no evidence of acute fracture or widening of th e mortise and talar dome appears unremarkable. There are minimal if any degenerative changes in the tibiotalar and subtalar joints. However, there is degenerative narrowing and dorsal osteophytes at talonavicular joint. Calcaneocuboid joint appear s unremarkable. IMPRESSION: As above. DATA REPOSITORY: RADIATION DOSE DELIVERED:
--- NOTE | 2022-01-23 14:30 | DI.RAD_ITS ---
Exam(s) XR FOOT RT COMPLETE EXAM: XR FOOT RT COMPLETE CLINICAL HISTORY: PAIN IN ANKLE JOINTS OF FOOT-M25.579, (ANTERIOR LATERAL). TECHNIQUE: 2D digital imaging was performed. COMPARISON: CR XR ANKLE RT COMPLETE from 01/23/2022 FINDINGS: 3 views Age-related osteopenia but no evidence of acute fracture evident. There is an element of mild medial subluxation of the proximal phalanx of the 2nd toe relative to the 2nd metatarsal head, but without joint space narrowing at the metatarsophalangeal joint at this level. Moderate degenerative changes noted in the great toe metatarsophalangeal joint as well as degenerative changes at the tarsometatars al joints. There is also significant degenerative change at the talonavicular joint with advanced mariah int space narrowing and subarticular degenerative cysts evident at this level. Pes planus noted. Small inferior calcaneal spur. Some vascular calcification is evident. No radiog raphic evidence of osteomyelitis. No radiopaque foreign body in the foot evident. IMPRESSION: Findings as above, mostly degenerative and pes planus. No acute fractures. DATA REPOSITORY: RADIATION DOSE DELIVERED:
== END ==
PROVIDERS: PCP Family Medicine; Visit Provider Podiatrist Foot & Ankle Surgery
DX: M19.071 Primary osteoarthritis, right ankle and foot (principal)
CPT/HCPCS: 73610; 73630